=== PATIENT | female | born 1935 | race African-American/Black ===

== ENCOUNTER 2017-07-30 12:49 | Emergency (ER) | payer MEDICARE, MEDICAID ==
[~2017-07-30] VITALS: Ht 154.9 cm; Wt 60.0 kg
[2017-07-30 17:30] VITALS: BP 160/77
== END 2017-07-30 19:05 | disposition home or self-care (01) ==
LOC: ER 15:35
DX: S09.8XXA Other specified injuries of head, initial encounter (principal); E78.00 Pure hypercholesterolemia, unspecified; I10 Essential (primary) hypertension; M47.892 Other spondylosis, cervical region; W01.0XXA Fall on same level from slipping, tripping and stumbling without subsequent striking against object, initial encounter; Y93.89 Activity, other specified; Y92.488 Other paved roadways as the place of occurrence of the external cause
CPT/HCPCS: 70450; 70486; 99284